=== PATIENT | female | born 1990 | race Hispanic/Latino ===

== ENCOUNTER 2017-11-24 12:49 | Emergency (ER) | payer BC ==
--- NOTE | 2017-11-24 13:22 | RAD ---
THREE VIEWS RIGHT GREAT TOE: HISTORY: Right great toe injury and pain. FINDINGS: Three views of the right great toe demonstrate no evidence of right great toe fractures, subluxations , or bony lesions. IMPRESSION: Normal 3 views right great toe. POS: C
== END 2017-11-24 13:37 | disposition home or self-care (01) ==
LOC: ERS 12:49
DX: S91.201A Unspecified open wound of right great toe with damage to nail, initial encounter (principal); W23.0XXA Caught, crushed, jammed, or pinched between moving objects, initial encounter